=== PATIENT | male | born 1940 | race American Indian/Alaskan Native ===

== ENCOUNTER 2021-10-27 06:00 | Observation (INO) | payer MEDICARE ==
[2021-10-21 12:32] LABS: Hematocrit 48.5 % (35.5-45.6); Hemoglobin 15.4 gm/dl (11.8-15.2); Mean Corpuscular HGB Conc 32 % (32-34); Mean Corpuscular Volume 77 fl (84-94); Platelet Count 105 K/mm3 (140-440); Red Blood Count 6.28 M/mm3 (3.65-5.03); Red Cell Distribution Width 17.2 % (13.2-15.2)
[2021-10-21 12:48] LABS: Alanine Aminotransferase 14 units/L (7-56); Albumin 3.1 g/dL (3.9-5); BUN/Creatinine Ratio 14; Blood Urea Nitrogen 17 mg/dL (9-20); Calcium 8.5 mg/dL (8.4-10.2); Hemolysis Index 12
[~2021-10-27 06:00] MED LIST: LACTATED RINGERS 1,000 ML IV SCH
[2021-10-27] MEDS ORDERED: ceFAZolin/Water 2 GM/20 ML 2 GM/20 ML SYRINGE IV ONE (06:39)
[2021-10-27] MEDS ORDERED: LACTATED RINGERS 1,000 ML ONE (06:39)
[2021-10-27] MEDS ORDERED: BACTERIOSTATIC SODIUM CHLORIDE 0.9% 30 ML VIAL INFILTRATI ONE (06:40)
[2021-10-27] MEDS ORDERED: LACTATED RINGERS 1,000 ML IV SCH (06:45)
[2021-10-27] MEDS ORDERED: ceFAZolin/Water 2 GM/20 ML 2 GM/20 ML SYRINGE IV NR (07:00)
[2021-10-27] MEDS ORDERED: LIDOCAINE MPF (2%) 20 MG/1 ML VIAL 5 ML ONE (07:01)
[2021-10-27] MEDS ORDERED: dexAMETHasone 20 MG/5 ML VIAL ONE (07:01)
[2021-10-27] MEDS ORDERED: propofoL 200 MG/20 ML VIAL IV ONE (07:01)
[2021-10-27] MEDS ORDERED: ePHEDrine SULFATE 50 MG/1 ML INJ ONE ×2 (07:01→09:10)
[2021-10-27] MEDS ORDERED: HYDROmorphone 1 MG/1 ML INJ ONE (07:01)
[2021-10-27] MEDS ORDERED: ONDANSETRON 4 MG/2 ML INJ ONE (07:01)
[2021-10-27] MEDS ORDERED: PHENYLEPHRINE/NS 1,000 MCG/10 ML SYRINGE (OR USE) IV ONE (07:01)
--- NOTE | 2021-10-27 07:32 | Anesthesia Consultation ---
Anesthesia Consult and Med Hx Date of service: 10/27/21 - Airway Anesthetic Teeth Evaluation: Edentulous ROM Head & Neck: Adequate Mental/Hyoid Distance: Adequate Mallampati Class: Class II Intubation Access Assessment: Probably Good - Pulmonary Exam CTA: Yes - Cardiac Exam Cardiac Exam: RRR - Pre-Operative Health Status ASA Pre-Surgery Classification: ASA3 Proposed Anesthetic Plan: General - Pulmonary Hx Smoking: Yes (quit 4 years ago) - Cardiovascular System Hx Hypertension: Yes Hx Heart Attack/AMI: Yes (Took carvedilol this morning) Hx Internal Defibrillator: Yes (has never discharged;seen by cardiology one week ago. clearance in chart. ) - Central Nervous System Hx Psychiatric Problems: No - Gastrointestinal Hx Gastroesophageal Reflux Disease: No - Endocrine Hx Renal Disease: No Hx Liver Disease: No - Hematic Hx Anemia: No - Other Systems Hx Alcohol Use: No Hx Cancer: No - Additional Comments Anesthesia Medical History Comments: No GAC. No FHAC. With cardiac clearance in chart. EF improved from 20% to 55-60%. Defibrillator has never discharged per patient.
--- NOTE | 2021-10-27 07:33 | Anesthesia Day of Surgery ---
Anesthesia Day of Surgery - Day of Surgery Patient Examined: Yes Patient H&P Reviewed: Yes Patient is NPO: Yes Beta Blockers: Yes Cardiac Clearance: Yes
[2021-10-27] MEDS ORDERED: HYDROmorphone 0.5 MG/0.5 ML INJ IV PRN ×2 (07:40)
[2021-10-27] MEDS ORDERED: ONDANSETRON 4 MG/2 ML INJ IV PRN (07:40)
[2021-10-27] MEDS ORDERED: SODIUM CHLORIDE 0.9% 1000 ML 1,000 ML ONE (07:41)
[2021-10-27] MEDS ORDERED: MIDAZOLAM 2 MG/2 ML INJ IV SCH (08:00)
[2021-10-27] MEDS ORDERED: IOHEXOL 300 MG/ML 50ML IV ONE (09:01)
[2021-10-27] MEDS ORDERED: MANNITOL/SORBITOL SOLUTION 3,000 ML IRRIG.SOLN IR ONE (09:13)
[2021-10-27] MEDS ORDERED: SODIUM CHLORIDE 0.9% IRRIG SOLN 3000 ML IR ONE (09:14)
[2021-10-27] MEDS ORDERED: NALOXONE 0.4 MG/1 ML INJ IV PRN (09:41)
--- NOTE | 2021-10-27 09:41 | Short Stay Summary ---
Short Stay Documentation Date of service: 10/27/21 - History H&P: obtained from office - Allergies and Medications Current Medications: Allergies No Known Allergies Allergy (Verified 10/21/21 13:53) Home Medications Medication Instructions Recorded Confirmed Last Taken Type Albuterol Mdi (or & Nicu Only) 2 puff PO Q6HR PRN 10/21/21 10/21/21 10/27/21 05:00 History [ProAir HFA Inhaler] Apixaban [Eliquis] 5 mg PO BID 10/21/21 10/27/21 10/22/21 History Dutasteride/Tamsulosin HCl [Alexandra 1 each PO DAILY 10/21/21 10/27/21 10/20/21 History 0.5-0.4 mg Capsule] Furosemide [Lasix TAB] 80 mg PO PRN PRN 10/21/21 10/21/21 10/26/21 History Gabapentin [Neurontin] 200 mg PO QHS 10/21/21 10/21/21 10/25/21 History Levothyroxine Sodium 50 mcg PO DAILY 10/21/21 10/21/21 10/27/21 05:00 History [Levothyroxine] Spironolactone [Aldactone] 25 mg PO QDAY 10/21/21 10/21/21 10/26/21 History Temazepam [Restoril] 15 mg PO QHS 10/21/21 10/21/21 10/25/21 History carvediloL [Coreg] 6.25 mg PO BID 10/21/21 10/21/21 10/27/21 05:00 History Active Medications Hydromorphone HCl (Hydromorphone 0.5 Mg/0.5 Ml Inj) 0.25 mg IV Q10MIN PRN PRN Reason: Pain, Moderate (4-6) Stop: 10/27/21 20:00 Hydromorphone HCl (Hydromorphone 0.5 Mg/0.5 Ml Inj) 0.5 mg IV Q10MIN PRN PRN Reason: Pain , Severe (7-10) Stop: 10/27/21 20:00 Cefazolin Sodium (Ancef/Sterile Water 2 Gm/20 Ml) 2 gm in 20 mls @ 80 mls/hr IV PREOP NR; Protocol Stop: 10/27/21 15:00 Lactated Ringer's (Lactated Ringers) 1,000 mls @ 100 mls/hr IV DIRECT AJITH Last Admin: 10/27/21 07:18 Dose: 100 mls/hr Midazolam HCl (Midazolam 2 Mg/2 Ml Inj) 2 mg IV PREOP AJITH Stop: 10/27/21 23:59 Last Admin: 10/27/21 07:43 Dose: 1 mg Ondansetron HCl (Ondansetron 4 Mg/2 Ml Inj) 4 mg IV ONCE PRN PRN Reason: Nausea And Vomiting Stop: 10/27/21 20:00 - Brief post op/procedure progress note Date of procedure: 10/27/21 Pre-op diagnosis: BPH Post-op diagnosis: same Procedure: TURP GREENLIGHT, URETHRAL DILATION Anesthesia: GETA Surgeon: CHAPARRO BRITT Condition: stable - Hospital course Hospital course: [facility] ON CHART - Disposition Condition at discharge: Stable Disposition: 01 HOME / SELF CARE / HOMELESS Short Stay Discharge Plan Follow up with: TYLOR HEART JR, MD [Primary Care Provider] - 7 Days
[2021-10-27] MEDS ORDERED: ALBUTEROL 8.5 GM MDI INHALATION IH PRN (09:46)
[2021-10-27] MEDS ORDERED: WATER FOR IRRIG STERILE 1,000 ML BOTTLE ONE (09:54)
[2021-10-27] MEDS ORDERED: LEVOTHYROXINE SODIUM 50 MCG PO SCH (10:00)
--- NOTE | 2021-10-27 10:17 | Operative Report ---
DATE OF SURGERY: 10/27/2021 PREOPERATIVE DIAGNOSIS: Benign prostatic hypertrophy. POSTOPERATIVE DIAGNOSES: Benign prostatic hypertrophy, urethral stricture. PROCEDURES PERFORMED: Cystoscopy, urethral dilatation, transurethral resection of the prostate, GreenLight laser ablation of the prostate, bilateral retrograde pyelogram. SURGEON: River Shabazz MD ANESTHESIA: General. ESTIMATED BLOOD LOSS: Minimal. FLUIDS: Crystalloid. COMPLICATIONS: No complications. INDICATIONS: This patient is an 81-year-old gentleman seen in the office for obstructive urinary symptoms. He has been undergoing clean intermittent catheterization intermittently. Urodynamics revealed a slow flow in 2019 with a postvoid residual of 123 mL. He has continued at least daily clean intermittent catheterization and at this point, he agreed to proceed with surgical intervention. Cardiac clearance was obtained to stop his Eliquis by his slasher tender. He presents now for surgical intervention. Risks, benefits, complications were explained. DESCRIPTION OF PROCEDURE: The patient was taken to the operative suite, placed in a supine position. After adequate general anesthesia, placed in dorsal lithotomy position, prepped and draped in a sterile fashion. Pancystourethroscopy was performed with a 22-Congolese Storz cystoscope. Obvious bulbar urethral stricture could be appreciated. A 0.035 Glidewire was placed. Urethral dilatation with blue dilators up to 20-Congolese was performed which allowed to advance the scope. The patient had mild to moderate trilobar obstruction, mild diffuse trabeculation. Both ureteral orifices in normal position. No tumors or stones were noted. Bilateral retrograde pyelograms were obtained with an 8-Congolese Patric catheter and 8 mL of contrast. No filling defects or obstruction. He did have some J-hooking of the distal ureter. Next, using a 24-Congolese resectoscope and loop with cutting and coag on 160 and 60, transurethral resection of the prostate, taken down the median lobe, right and left lateral lobes. The patient had a history of atrial fibrillation, is on a blood thinner, which he discontinued; however, to assist with bleeding, I used the GreenLight laser, MoXy fiber. Prostate ablation was performed at the lateral lobes as well as coagulation. Poplar-tinged urine could be appreciated. A 22-Congolese 3-way catheter with a [place] P[place] drip was placed. Cystogram confirmed adequate positioning. Rectal exam was benign. He was extubated and taken to recovery room. He will be observed overnight and go home on Jl and Renay. TID: [id number] RECEIPT: [id number] MARIELLE/ANASTASIYA
[2021-10-27] MEDS ORDERED: ACETAMINOPHEN 325 MG TAB PO PRN (11:00)
[2021-10-27] MEDS ORDERED: HYDROcodone/ACETAMINOPHEN 5-325 MG TAB PO PRN (11:00)
[2021-10-27] MEDS ORDERED: MORPHINE 4 MG/1 ML INJ IV PRN (11:00)
--- NOTE | 2021-10-27 11:04 | Consultation ---
History of Present Illness - Reason for Consult Consult date: 10/27/21 Medical management Requesting physician: CHAPARRO BRITT - History of Present Illness 81-year-old male patient with significant past medical history of hypertension, coronary artery disease, hypothyroidism, coronary artery disease with history of BPH and urethral stricture was admitted by urology team and patient underwent cystoscopy, urethral dilation, transurethral resection of the prostate, g reenlight laser ablation of the prostate, bilateral retrograde pyelogram. As patient has multiple medical problems, hospitalist service was consulted for medical management. Past History Past Medical History: CAD, heart failure, hypertension, hypothyroidism, other (BPH, urethral stricture, peripheral neuropathy) Past Surgical History: TURP Social history: denies: smoking, alcohol abuse Family history: no significant family history Medications and Allergies Allergies Allergy/AdvReac Type Severity Reaction Status Date / Time No Known Allergies Allergy Verified 10/21/21 13:53 Home Medications Medication Instructions Recorded Confirmed Last Taken Type Albuterol Mdi (or & Nicu Only) 2 puff PO Q6HR PRN 10/21/21 10/21/21 10/27/21 05:00 History [ProAir HFA Inhaler] Apixaban [Eliquis] 5 mg PO BID 10/21/21 10/27/21 10/22/21 History Dutasteride/Tamsulosin HCl [Alexandra 1 each PO DAILY 10/21/21 10/27/21 10/20/21 History 0.5-0.4 mg Capsule] Furosemide [Lasix TAB] 80 mg PO PRN PRN 10/21/21 10/21/21 10/26/21 History Gabapentin [Neurontin] 200 mg PO QHS 10/21/21 10/21/21 10/25/21 History Levothyroxine Sodium 50 mcg PO DAILY 10/21/21 10/21/21 10/27/21 05:00 History [Levothyroxine] Spironolactone [Aldactone] 25 mg PO QDAY 10/21/21 10/21/21 10/26/21 History Temazepam [Restoril] 15 mg PO QHS 10/21/21 10/21/21 10/25/21 History carvediloL [Coreg] 6.25 mg PO BID 10/21/21 10/21/21 10/27/21 05:00 History Active Meds: Active Medications Acetaminophen (Acetaminophen 325 Mg Tab) 650 mg PO Q4H PRN PRN Reason: Pain, Mild (1-3)/Fever > 100.5 Hydrocodone Bitart/Acetaminophen (Hydrocodone/Acetaminophen 5-325 Mg Tab) 2 each PO Q4H PRN PRN Reason: Pain, Moderate (4-6) Albuterol (Albuterol 8.5 Gm Mdi Inhalation) 2 puff IH Q6HR PRN PRN Reason: wheezing Carvedilol (Carvedilol 6.25 Mg Tab) 6.25 mg PO BID AJITH Gabapentin (Gabapentin 100 Mg Cap) 200 mg PO QHS AJITH Hydromorphone HCl (Hydromorphone 0.5 Mg/0.5 Ml Inj) 0.25 mg IV Q10MIN PRN PRN Reason: Pain, Moderate (4-6) Stop: 10/27/21 20:00 Hydromorphone HCl (Hydromorphone 0.5 Mg/0.5 Ml Inj) 0.5 mg IV Q10MIN PRN PRN Reason: Pain , Severe (7-10) Stop: 10/27/21 20:00 Cefazolin Sodium (Ancef/Sterile Water 2 Gm/20 Ml) 2 gm in 20 mls @ 80 mls/hr IV PREOP NR; Protocol Stop: 10/27/21 15:00 Lactated Ringer's (Lactated Ringers) 1,000 mls @ 100 mls/hr IV DIRECT AJITH Last Admin: 10/27/21 07:18 Dose: 100 mls/hr Cefazolin Sodium (Ancef/Ns 1 Gm/50 Ml) 1 gm in 50 mls @ 100 mls/hr IV Q8H AJITH; Protocol Stop: 10/28/21 00:29 Levothyroxine Sodium (Levothyroxine 50 Mcg Tab) 50 mcg PO DAILY@0600 AJITH Midazolam HCl (Midazolam 2 Mg/2 Ml Inj) 2 mg IV PREOP AJITH Stop: 10/27/21 23:59 Last Admin: 10/27/21 07:43 Dose: 1 mg Morphine Sulfate (Morphine 4 Mg/1 Ml Inj) 4 mg IV Q4H PRN PRN Reason: Pain , Severe (7-10) Naloxone HCl (Naloxone 0.4 Mg/1 Ml Inj) 0.1 mg IV Q2MIN PRN PRN Reason: Res Rate </= 8 or 02 SAT < 92% Ondansetron HCl (Ondansetron 4 Mg/2 Ml Inj) 4 mg IV ONCE PRN PRN Reason: Nausea And Vomiting Stop: 10/27/21 20:00 Spironolactone (Spironolactone 25 Mg Tab) 25 mg PO QDAY AJITH Temazepam (Temazepam 15 Mg Cap) 15 mg PO QHS [facility] Review of Systems Constitutional: no weight loss, no weight gain, no fatigue, no weakness Ears, nose, mouth and throat: no nasal congestion, no nasal discharge Cardiovascular: no chest pain, no palpitations Respiratory: no cough, no shortness of breath Gastrointestinal: no abdominal pain, no nausea, no vomiting Genitourinary Male: no dysuria, no hematuria Musculoskeletal: no myalgias, no arthritis Integumentary: no rash, no lesions Neurological: no seizures, no syncope Psychiatric: no anxiety, no depression Endocrine: no cold intolerance, no heat intolerance Hematologic/Lymphatic: no easy bruising, no easy bleeding Allergic/Immunologic: no urticaria, no allergic rhinitis Exam - Constitutional Vitals: Temp Pulse Resp BP Pulse Ox 97.6 F 109 H 20 121/91 95 10/27/21 10:45 10/27/21 10:45 10/27/21 10:45 10/27/21 10:45 10/27/21 10:45 General appearance: Present: no acute distress, well-nourished - EENT Eyes: Present: PERRL, EOM intact - Neck Neck: Present: supple, normal ROM - Respiratory Respiratory effort: normal Respiratory: bilateral: diminished, negative: rales, rhonchi, wheezing - Cardiovascular Rhythm: regular Heart Sounds: Present: S1 & S2 - Extremities Extremities: no ischemia, No edema - Abdominal General gastrointestinal: Present: soft, non-tender, non-distended, normal bowel sounds - Integumentary Integumentary: Present: clear, warm - Musculoskeletal Musculoskeletal: strength equal bilaterally - Psychiatric Psychiatric: appropriate mood/affect, cooperative - Neurologic Neurologic: moves all extremities Results - Labs CBC & Chem 7: 10/21/21 06:00 10/21/21 06:00 Assessment and Plan -- Hypertension; Resume patient's home antihypertensives And as needed medications -- Hypothyroidism; Resume Synthroid and supportive care -- History of coronary artery disease; Patient denies any chest pain or shortness of breath Resume current cardiac medications -- Gastroesophageal reflux disease -- Chronic anticoagulation on Eliquis; Probably secondary to PE prophylaxis -- Benign prostatic hypertrophy with urethral stricture s/p cystoscopy, urethral dilation, transurethral resection of the prostate, greenlight laser ablation of the prostate, bilateral retrograde pyelogram. Management per urology --DVT prophylaxis; SCDs No pharmacologic anticoagulation in view of postop state --Full CODE STATUS Thank you for this consultation we will follow the patient along with you Call us with questions
--- NOTE | 2021-10-27 11:14 | Fluoroscopy Report ---
INTRAOPERATIVE FLUOROSCOPY: INDICATION / CLINICAL INFORMATION: BILAT RPG WITH URETHRAL DILATION. TECHNIQUE: Intraoperative spot images were obtained during the procedure. FINDINGS: Contrast is injected into both ureters and renal collecting systems. No filling defects are seen. The re are bladder diverticula. Fluoroscopy Time: 11 seconds. Fluoroscopy Images: 5. Signer Name: Clyde Erickson MD Signed: 10/27/2021 11:09 AM Workstation Name: [email or web address]
[2021-10-27] MEDS ORDERED: ALBUTEROL 2.5 MG/3 ML NEBU IH PRN (11:17)
[2021-10-27] MEDS: carvediloL 6.25 MG TAB PO SCH ×2 (11:22→22:01)
[2021-10-27] MEDS: LEVOTHYROXINE 50 MCG TAB PO SCH (11:23)
[2021-10-27] MEDS: SPIRONOLACTONE 25 MG TAB PO SCH (11:37)
--- NOTE | 2021-10-27 13:50 | Post Anesthesia Evaluation ---
- Post Anesthesia Evaluation Patient Participated: Yes Airway Patent: Yes Stable Respiratory Function: Yes Nausea/Vomiting: No Temp > 96.8F: Yes Pain Manageable: Yes Adequeate Hydration: Yes Anesthesia Complications: No Block Receding Appropriately: Not Applicable Patient on Ventilator: No
[2021-10-27] MEDS ORDERED: ALBUTEROL 2.5 MG/3 ML NEBU IH SCH (14:00)
[2021-10-27] MEDS: ceFAZolin/NS 1 GM/50 ML 1 GM/50 ML BAG IV SCH (16:13)
[2021-10-27] MEDS ORDERED: SODIUM CHLORIDE 0.9% IRRIG SOLN 2000 ML IR SCH (17:00)
[2021-10-27] MEDS ORDERED: TEMAZEPAM 15 MG CAP PO SCH (22:00)
[2021-10-27] MEDS ORDERED: GABAPENTIN 100 MG CAP PO SCH (22:00)
[2021-10-28] MEDS: ceFAZolin/NS 1 GM/50 ML 1 GM/50 ML BAG IV SCH
[2021-10-28] MEDS ORDERED: ceFAZolin/NS 1 GM/50 ML 1 GM/50 ML BAG IV SCH (01:00)
[2021-10-28] MEDS: LEVOTHYROXINE 50 MCG TAB PO SCH (06:42)
--- NOTE | 2021-10-28 08:54 | Discharge Summary ---
Short Stay Discharge Plan Activity: other (no straining ) Weight Bearing Status: Full Weight Bearing Diet: low fat, low cholesterol, low salt Durable Medical Equipment Needed Upon Discharge: other (home with catheter ) Follow up with: TYLOR HEART JR, MD [Primary Care Provider] - 7 Days ROBERT TERRY MD [Staff Physician] - 3 Days
--- NOTE | 2021-10-28 08:55 | Progress Note ---
Assessment and Plan clear ok for d/c Subjective Date of service: 10/28/21 Objective - Constitutional Vitals: Vital Signs - 12hr 10/27/21 10/27/21 10/27/21 22:00 22:01 23:21 Temperature 97.7 F Pulse Rate 112 H 94 H Respiratory 18 Rate Blood Pressure 97/70 90/65 O2 Sat by Pulse 98 97 Oximetry 10/28/21 10/28/21 03:57 07:55 Temperature 97.9 F 98.3 F Pulse Rate 47 L 93 H Respiratory 16 Rate Blood Pressure 88/50 88/59 O2 Sat by Pulse 94 94 Oximetry General appearance: Present: no acute distress - Neck Neck: supple - Respiratory Respiratory effort: normal - Gastrointestinal General gastrointestinal: Present: soft, non-tender - Labs CBC & Chem 7: 10/21/21 06:00 10/21/21 06:00 Medications & Allergies - Medications Allergies/Adverse Reactions: Allergies No Known Allergies Allergy (Verified 10/21/21 13:53) Home Medications: Home Medications Medication Instructions Recorded Confirmed Last Taken Type Albuterol Mdi (or & Nicu Only) 2 puff PO Q6HR PRN 10/21/21 10/21/21 10/27/21 05:00 History [ProAir HFA Inhaler] Apixaban [Eliquis] 5 mg PO BID 10/21/21 10/27/21 10/22/21 History Dutasteride/Tamsulosin HCl [Alexandra 1 each PO DAILY 10/21/21 10/27/21 10/20/21 History 0.5-0.4 mg Capsule] Furosemide [Lasix TAB] 80 mg PO PRN PRN 10/21/21 10/21/21 10/26/21 History Gabapentin [Neurontin] 200 mg PO QHS 10/21/21 10/21/21 10/25/21 History Levothyroxine Sodium 50 mcg PO DAILY 10/21/21 10/21/21 10/27/21 05:00 History [Levothyroxine] Spironolactone [Aldactone] 25 mg PO QDAY 10/21/21 10/21/21 10/26/21 History Temazepam [Restoril] 15 mg PO QHS 10/21/21 10/21/21 10/25/21 History carvediloL [Coreg] 6.25 mg PO BID 10/21/21 10/21/21 10/27/21 05:00 History Active Medications: Generic Name Dose Route Start Last Admin Trade Name Frealine PRN Reason Stop Dose Admin Acetaminophen 650 mg 10/27/21 11:00 Acetaminophen 325 Mg Tab PO Q4H PRN Pain, Mild (1-3)/Fever > 100.5 Hydrocodone Bitart/Acetaminophen 2 each 10/27/21 11:00 Hydrocodone/Acetaminophen 5-325 Mg Tab PO Q4H PRN Pain, Moderate (4-6) Albuterol 2.5 mg 10/27/21 11:17 Albuterol 2.5 Mg/3 Ml Nebu IH Q4HRT PRN Shortness Of Breath Carvedilol 6.25 mg 10/27/21 11:00 10/27/21 22:01 Carvedilol 6.25 Mg Tab PO Not Given BID AJITH Gabapentin 200 mg 10/27/21 22:00 10/27/21 22:00 Gabapentin 100 Mg Cap PO 200 mg QHS AJITH Administration Lactated Ringer's 1,000 mls @ 100 mls/hr 10/27/21 06:45 10/27/21 07:18 Lactated Ringers IV 100 mls/hr DIRECT AJITH Administration Levothyroxine Sodium 50 mcg 10/27/21 12:00 10/28/21 06:42 Levothyroxine 50 Mcg Tab PO 50 mcg DAILY@0600 AJITH Administration Morphine Sulfate 4 mg 10/27/21 11:00 Morphine 4 Mg/1 Ml Inj IV Q4H PRN Pain , Severe (7-10) Naloxone HCl 0.1 mg 10/27/21 09:41 Naloxone 0.4 Mg/1 Ml Inj IV Q2MIN PRN Res Rate </= 8 or 02 SAT < 92% Sodium Chloride 2,000 ml 10/27/21 17:00 Sodium Chloride 0.9% Irrig Soln 2000 Ml IR DIRECT AJITH Spironolactone 25 mg 10/27/21 11:00 10/27/21 11:37 Spironolactone 25 Mg Tab PO 25 mg QDAY AJITH Administration Temazepam 15 mg 10/27/21 22:00 10/27/21 22:00 Temazepam 15 Mg Cap PO 15 mg QHS AJITH Administration
[2021-10-28 10:37] VITALS: BP 88/46
[2021-10-28] MEDS: SPIRONOLACTONE 25 MG TAB PO SCH (10:37)
[2021-10-28] MEDS: carvediloL 6.25 MG TAB PO SCH (10:38)
[2021-10-28] MEDS ORDERED: SODIUM CHLORIDE 0.9% 250ML 250 ML IV ONE (11:17)
--- NOTE | 2021-10-28 11:19 | Progress Note ---
Assessment and Plan Assessment and plan: -- Hypertension; Resume patient's home antihypertensives And as needed medications -- Hypothyroidism; Resume Synthroid and supportive care -- History of coronary artery disease; Patient denies any chest pain or shortness of breath Resume current cardiac medications -- Gastroesophageal reflux disease -- Chronic anticoagulation on Eliquis; Probably secondary to PE prophylaxis -- Benign prostatic hypertrophy with urethral stricture s/p cystoscopy, urethral dilation, transurethral resection of the prostate, greenlight laser ablation of the prostate, bilateral retrograde pyelogram. Management per urology --DVT prophylaxis; SCDs No pharmacologic anticoagulation in view of postop state --Full CODE STATUS Thank you for this consultation we will follow the patient along with you Call us with questions Hospitalist Physical - Constitutional Vitals: Temp Pulse Resp BP Pulse Ox 98.3 F 65 16 88/46 94 10/28/21 07:55 10/28/21 10:38 10/28/21 03:57 10/28/21 10:38 10/28/21 07:55 General appearance: Present: no acute distress Results - Labs CBC & Chem 7: 10/21/21 06:00 10/21/21 06:00 Labs: Laboratory Last Values WBC 2.3 K/mm3 (4.5-11.0) L 10/21/21 06:00 RBC 6.28 M/mm3 (3.65-5.03) H 10/21/21 06:00 Hgb 15.4 gm/dl (11.8-15.2) H 10/21/21 06:00 Hct 48.5 % (35.5-45.6) H 10/21/21 06:00 MCV 77 fl (84-94) L 10/21/21 06:00 MCH 25 pg (28-32) L 10/21/21 06:00 MCHC 32 % (32-34) 10/21/21 06:00 RDW 17.2 % (13.2-15.2) H 10/21/21 06:00 Plt Count 105 K/mm3 (140-440) L 10/21/21 06:00 Sodium 139 mmol/L (137-145) 10/21/21 06:00 Potassium 3.3 mmol/L (3.6-5.0) L 10/21/21 06:00 Chloride 104.7 mmol/L (98-107) 10/21/21 06:00 Carbon Dioxide 25 mmol/L (22-30) 10/21/21 06:00 Anion Gap 13 mmol/L 10/21/21 06:00 BUN 17 mg/dL (9-20) 10/21/21 06:00 Creatinine 1.2 mg/dL (0.8-1.3) 10/21/21 06:00 Estimated GFR > 60 ml/min 10/21/21 06:00 BUN/Creatinine Ratio 14 % 10/21/21 06:00 Glucose 106 mg/dL (75-100) H 10/21/21 06:00 Calcium 8.5 mg/dL (8.4-10.2) 10/21/21 06:00 Total Bilirubin 1.00 mg/dL (0.1-1.2) 10/21/21 06:00 AST 19 units/L (5-40) 10/21/21 06:00 ALT 14 units/L (7-56) 10/21/21 06:00 Alkaline Phosphatase 90 units/L (35-129) 10/21/21 06:00 Total Protein 6.6 g/dL (6.3-8.2) 10/21/21 06:00 Albumin 3.1 g/dL (3.9-5) L 10/21/21 06:00 Albumin/Globulin Ratio 0.9 % 10/21/21 06:00 Blood Type AB POSITIVE 10/27/21 06:50 Antibody Screen Negative 10/27/21 06:50 Butler/IV: Voiding Method Indwelling Catheter Active Medications - Current Medications Current Medications: Generic Name Dose Route Start Last Admin Trade Name Freq PRN Reason Stop Dose Admin Acetaminophen 650 mg 10/27/21 11:00 Acetaminophen 325 Mg Tab PO Q4H PRN Pain, Mild (1-3)/Fever > 100.5 Hydrocodone Bitart/Acetaminophen 2 each 10/27/21 11:00 Hydrocodone/Acetaminophen 5-325 Mg Tab PO Q4H PRN Pain, Moderate (4-6) Albuterol 2.5 mg 10/27/21 11:17 Albuterol 2.5 Mg/3 Ml Nebu IH Q4HRT PRN Shortness Of Breath Carvedilol 6.25 mg 10/27/21 11:00 10/28/21 10:38 Carvedilol 6.25 Mg Tab PO Not Given BID AJITH Gabapentin 200 mg 10/27/21 22:00 10/27/21 22:00 Gabapentin 100 Mg Cap PO 200 mg QHS AJITH Administration Lactated Ringer's 1,000 mls @ 100 mls/hr 10/27/21 06:45 10/27/21 07:18 Lactated Ringers IV 100 mls/hr DIRECT AJITH Administration Sodium Chloride 250 mls @ 999 mls/hr 10/28/21 11:17 Nacl 0.9% 250ml IV 10/28/21 11:32 ONCE ONE Levothyroxine Sodium 50 mcg 10/27/21 12:00 10/28/21 06:42 Levothyroxine 50 Mcg Tab PO 50 mcg DAILY@0600 AJITH Administration Morphine Sulfate 4 mg 10/27/21 11:00 Morphine 4 Mg/1 Ml Inj IV Q4H PRN Pain , Severe (7-10) Naloxone HCl 0.1 mg 10/27/21 09:41 Naloxone 0.4 Mg/1 Ml Inj IV Q2MIN PRN Res Rate </= 8 or 02 SAT < 92% Sodium Chloride 2,000 ml 10/27/21 17:00 Sodium Chloride 0.9% Irrig Soln 2000 Ml IR DIRECT AJITH Spironolactone 25 mg 10/27/21 11:00 10/28/21 10:37 Spironolactone 25 Mg Tab PO Not Given QDAY AJITH Temazepam 15 mg 10/27/21 22:00 10/27/21 22:00 Temazepam 15 Mg Cap PO 15 mg QHS AJITH Administration
== END 2021-10-28 13:58 | disposition home or self-care (01) ==
LOC: OR 06:00 → 4A 09:41
PROVIDERS: ADMIT Urology; ATTEND Urology
DX: N40.1 Benign prostatic hyperplasia with lower urinary tract symptoms (principal); I10 Essential (primary) hypertension; E03.9 Hypothyroidism, unspecified; K21.9 Gastro-esophageal reflux disease without esophagitis; R33.8 Other retention of urine; Z79.01 Long term (current) use of anticoagulants; Z79.899 Other long term (current) drug therapy
CPT/HCPCS: 36415; 52648; 74420; 80053; 85027; 86850; 86900; 86901; 88305; 96365; 96366; C1726; C1769; G0378; G0379; J0690; J1100; J1170; J2250; J2370; J2405; J2704; J3490; J7030; J7050; J7120; Q9967